=== PATIENT | female | born 1985 | race Caucasian/White ===

== ENCOUNTER 2018-11-05 22:54 | Emergency (ER) | payer OTHER ==
[~2018-11-05] VITALS: Ht 172.7 cm; Wt 109.0 kg
[2018-11-05 23:00] VITALS: BP 132/67; PULSE 92; RESP 18; Ht 172.7 cm; Wt 109.0 kg
[2018-11-06] MEDS ORDERED: CEPH-443 PO (04:00)
[2018-11-06] MEDS ORDERED: ACET500C5 PO (04:00)
--- NOTE | 2018-11-06 06:02 | ERD ---
ER Documentation Chief Complaint Chief Complaint 12 weeks , passed a clot vaginally an hr ago HPI 33-year-old female patient with no significant past medical history presents to ED complaining of vaginal bleeding that started 1 hour ago. Patient reports that she follows up with Dr. Ilan Rey from [facility]. She is a . Reports that she passed a blood clot, had to change one pad since her vaginal bleeding occurred. Reports that her last menstruation was on July 17, 2018. Chills, nausea, vomiting, diarrhea, neck stiffness, dysuria, urgency, frequency. ROS All systems reviewed and are negative except as per history of present illness. Medications Home Meds Active Scripts Acetaminophen* (Tylophen*) 500 Mg Capsule, 1 CAP PO Q6H PRN for PAIN AND OR ELEVATED TEMP, #20 CAP Prov:SHIVA GARCIA PA-C 11/06/18 Cephalexin* (Keflex*) 500 Mg Capsule, 500 MG PO QID for 7 Days, CAP Prov:SHIVA GARCIA PA-C 11/06/18 Allergies Allergies: Coded Allergies: No Known Allergy (Unverified , 11/05/18) PMhx/Soc Medical and Surgical Hx: pt denies Medical Hx History of Surgery: Yes () Anesthesia Reaction: No Hx Neurological Disorder: No Hx Respiratory Disorders: No Hx Cardiac Disorders: No Hx Psychiatric Problems: No Hx Miscellaneous Medical Probl: No Hx Alcohol Use: No Hx Substance Use: No Hx Tobacco Use: No Smoking Status: Never smoker FmHx Family History: No diabetes, No coronary disease Physical Exam Vitals Vital Signs Date Temp Pulse Resp B/P (MAP) Pulse Ox O2 O2 Flow FiO2 Time Delivery Rate 11/05/18 98.1 92 18 132/67 100 23:00 (88) Physical Exam Const: [id number], well-nourished. In no acute distress. Head: Atraumatic, normocephalic Eyes: Normal Conjunctiva without injection. No purulent discharge. ENT: Normal external ear, nose. Moist oropharynx without tonsillar exudates. Non-erythematous pharynx. Uvula midline. No drooling. No trismus. Neck: No cervical midline tenderness. Full range of motion. No meningismus. No cervical lymphadenopathy. No JVD. Resp: Clear to auscultation bilaterally. No wheezing, rhonchi, rales, or crackles. No accessory muscle use. No retractions. Cardio: Regular rate and rhythm. No murmurs, rubs or gallops. Abd: Soft, nontender, non distended. Normal bowel sounds. No palpable masses. No rebound tenderness. No guarding. Negative McBurney's point. Negative psoas sign. Negative obturator sign. Skin: No petechiae or rashes Back: No midline tenderness. No CVA tenderness. Ext: No cyanosis, or edema. Neur: Awake and alert. Normal gait. Normal coordination. Psych: Normal Mood and Affect Result Diagram: 11/06/18 0200 Results 24 hrs Laboratory Tests Test 11/06/18 02:00 11/06/18 03:05 White Blood Count 8.7 10^3/ul Red Blood Count 3.94 10^6/ul Hemoglobin 12.2 g/dl Hematocrit 36.9 % Mean Corpuscular Volume 93.7 fl Mean Corpuscular Hemoglobin 31.0 pg Mean Corpuscular Hemoglobin Concent 33.1 g/dl Red Cell Distribution Width 11.9 % Platelet Count 337 10^3/UL Mean Platelet Volume 9.4 fl Immature Granulocytes % 0.200 % Neutrophils % 71.7 % Lymphocytes % 21.0 % Monocytes % 5.2 % Eosinophils % 1.6 % Basophils % 0.3 % Nucleated Red Blood Cells % 0.0 /100WBC Immature Granulocytes # 0.020 10^3/ul Neutrophils # 6.2 10^3/ul Lymphocytes # 1.8 10^3/ul Monocytes # 0.5 10^3/ul Eosinophils # 0.1 10^3/ul Basophils # 0.0 10^3/ul Nucleated Red Blood Cells # 0.0 10^3/ul Beta HCG, Quantitative 87991.0 mIU/ml Urine Color YELLOW Urine Clarity SLIGHTLY CLOUDY Urine pH 5.0 Urine Specific Ross 1.023 Urine Ketones NEGATIVE mg/dL Urine Nitrite NEGATIVE mg/dL Urine Bilirubin NEGATIVE mg/dL Urine Urobilinogen NEGATIVE mg/dL Urine Leukocyte Esterase NEGATIVE Naresh/ul Urine Microscopic RBC 150 /HPF Urine Microscopic WBC 1 /HPF Urine Squamous Epithelial Cells FEW /HPF Urine Bacteria FEW /HPF Urine Mucus FEW /HPF Urine Hemoglobin 3+ mg/dL Urine Glucose NEGATIVE mg/dL Urine Total Protein NEGATIVE mg/dl Procedures/MDM 33-year-old female patient who is a presents to the ED complaining of vaginal bleeding that started yesterday. Patient is afebrile and nontoxic- appearing. An ultrasound, beta-hCG, CBC, type and RH, UA was ordered to evaluate patient. CBC: No evidence of severe infection or anemia Urine: No elevation in nitrites, leukocyte esterase, hematuria. Bacteria noted Rh: A Positive No indication for Rhogam at this time. beta Hc IMPRESSION: Single live intrauterine with an estimated gestational age of 12 weeks 0 days, and estimated delivery date 05/21/2019. Small subchorionic hemorrhage is noted. This could be reevaluated at time of follow-up anatomy ultrasound prior to 20 weeks. Patient's bleeding symptoms have stabilized while in the department. Patient was treated for a urinary tract infection. Low suspicion for symptomatic anemia, ectopic , sepsis, PID, appendicitis, ovarian torsion, tubo-ovarian abscess, surgical abdomen, or other emergent conditions. Patient was educated that there is a risk for threatened . Patient to follow up with [facility] in 2 days for further evaluation and treatment. Patient is to return sooner to the ED for any worsening symptoms. Patient's questions were answered. Patient understood and agreed with discharge plan. The Diagnosis: Vaginal bleeding and patient less than is 20 weeks Discharge medications: Tylenol, Keflex Follow up with primary care physician in 1-2 days. Instructed patient to return to the ED sooner for any worsening symptoms. Patient's questions were answered. Patient is hemodynamically stable. Patient understood and agreed with discharge plan. Patient discharged stable. Disclaimer: Inadvertent spelling and grammatical errors are likely due to EHR/dictation software use and do not reflect on the overall quality of patient care. Also, please note that the electronic time recorded on this note does not necessarily reflect the actual time of the patient encounter. Departure Diagnosis: Primary Impression: Vaginal bleeding in patient at less than 20 weeks ges... Condition: Stable Patient Instructions: Bleeding During Early Referrals: KYLIE MCFARLAND MD (PCP) SEAN CONNELLY MD [facility] YOU HAVE RECEIVED A MEDICAL SCREENING EXAM AND THE RESULTS INDICATE THAT YOU DO NOT HAVE A CONDITION THAT REQUIRES URGENT TREATMENT IN THE EMERGENCY DEPARTMENT. FURTHER EVALUATION AND TREATMENT OF YOUR CONDITION CAN WAIT UNTIL YOU ARE SEEN IN YOUR DOCTORS OFFICE WITHIN THE NEXT 1-2 DAYS. IT IS YOUR RESPONSIBILITY TO MAKE AN APPOINTMENT FOR FOLOW-UP CARE. IF YOU HAVE A PRIMARY DOCTOR --you should call your primary doctor and schedule an appointment IF YOU DO NOT HAVE A PRIMARY DOCTOR YOU CAN CALL OUR PHYSICIAN REFERRAL HOTLINE AT IF YOU CAN NOT AFFORD TO SEE A PHYSICIAN YOU CAN CHOSE FROM THE FOLLOWING [facility] [address] [facility] [address] [facility] [address] [facility] [address] [facility] [address] [facility] [facility] [address] [facility] YOU HAVE RECEIVED A MEDICAL SCREENING EXAM AND THE RESULTS INDICATE THAT YOU DO NOT HAVE A CONDITION THAT REQUIRES URGENT TREATMENT IN THE EMERGENCY DEPARTMENT. FURTHER EVALUATION AND TREATMENT OF YOUR CONDITION CAN WAIT UNTIL YOU ARE SEEN IN YOUR DOCTORS OFFICE WITHIN THE NEXT 1-2 DAYS. IT IS YOUR RESPONSIBILITY TO MAKE AN APPOINTMENT FOR FOLOW-UP CARE. IF YOU HAVE A PRIMARY DOCTOR --you should call your primary doctor and schedule and appointment IF YOU DO NOT HAVE A PRIMARY DOCTOR YOU CAN CALL OUR PHYSICIAN REFERRAL HOTLINE AT . IF YOU CAN NOT AFFORD TO SEE A PHYSICIAN YOU CAN CHOSE FROM THE FOLLOWING [facility]: [facility] [address] [place] [address] [facility] [address] [place] [address] [facility] [address] [place] [address] [facility] [place] [address] [facility] [address] [place] [address] OFFICE FAX [facility] [address] [place] [address] [address] [address] [place] [address] [address] MUSE, [facility] [address] [facility] [address] [address], [facility] [address] [facility] [facility] [place] [address] [facility] [address] [place] [address] [facility], [facility] [address] - [address] CHAPARRO, MARCIA [address] [facility] [address] [address] ADAMES, [place] [address] [facility]. [address], [facility] [address] [address] PATRICIO, [facility] [address] [place], [place] [id number] [facility] Hours: 8:00 am - 5:00 pm Additional Instructions: Call your primary care doctor TOMORROW for an appointment during the next 2-3 days.See the doctor sooner or return here if your condition worsens before your appointment time. SHIVA GARCIA PA-C Nov 06, 2018 06:02
== END 2018-11-06 04:10 | disposition home or self-care (01) ==
LOC: FTE 22:54
DX: O20.9 Hemorrhage in early pregnancy, unspecified (principal); Z3A.12 12 weeks gestation of pregnancy
CPT/HCPCS: 36415; 76801; 81001; 84702; 85025; 86900; 86901; Z7502

== ENCOUNTER 2019-05-12 07:50 | Inpatient (IN) | payer OTHER ==
[~2019-05-12] VITALS: Ht 172.7 cm; Wt 122.0 kg
[2019-05-12] MEDS: LACTATED RINGER'S 1,000 ML IV SCH ×2 (06:23→10:05)
[~2019-05-12 07:50] MED LIST: ACET500C5 PO; CEPH-443 PO
[2019-05-12 08:13] VITALS: Ht 172.7 cm; Wt 122.0 kg
[2019-05-12] MEDS ORDERED: CEFAZOLIN 3 GM in DEXTROSE 5% 100 ML IV ONE (09:00)
[2019-05-12] MEDS ORDERED: METHYLERGONOVINE 0.2 MG INJ IM PRN ×2 (09:00→17:30)
[2019-05-12] MEDS ORDERED: CARBOPROST 250 MCG INJ IM PRN ×2 (09:00→17:30)
[2019-05-12] MEDS ORDERED: MISOPROSTOL 200 MCG TAB PR PRN ×2 (09:00→17:30)
[2019-05-12] MEDS ORDERED: OXYTOCIN 30 UNITS/LR 500 ML IV PRN ×2 (09:00→17:30)
[2019-05-12] MEDS ORDERED: OXYTOCIN 30 UNITS/LR 500 ML IV SCH ×2 (09:00→17:28)
[2019-05-12] MEDS ORDERED: FENTAnyl 50 MCG/ML VIAL ONE (13:10)
[2019-05-12] MEDS ORDERED: morphine SULFATE/PF (10 MG/10 ML) INJ ONE (13:10)
--- NOTE | 2019-05-12 13:10 | PREAC ---
Date/Time of Note Date/Time of Note DATE: 05/12/19 TIME: 13:09 Anesthesia Eval and Record Evaluation Time Pre-Procedure Interview DATE: 05/12/19 TIME: 13:09 Age 33 Sex female NPO: 8 hrs Preoperative diagnosis previous c section Planned procedure c section with BTL Past Medical History Past Medical History: Includes GI: Obesity, Morbid obesity Surgery & Anesthesia Issues No known issue Meds Anticoagulation: No Beta Bell within 24 hr: No Reason Beta Bell not given: Pt. not on B-Bell Active Scripts Acetaminophen* (Tylophen*) 500 Mg Capsule, 1 CAP PO Q6H PRN for PAIN AND OR ELEVATED TEMP, #20 CAP Prov:SHIVA GARCIA PA-C 11/06/18 Cephalexin* (Keflex*) 500 Mg Capsule, 500 MG PO QID for 7 Days, CAP Prov:SHIVA GARCIA PA-C 11/06/18 Current Medications Lactated Ringer's 1,000 ml @ 125 mls/hr Q8H IV Last administered on 05/12/19at 10:05; Admin Dose 125 MLS/HR; Start 05/12/19 at 08:34 Oxytocin/Lactated Ringer's 500 ml @ 125 mls/hr POST IV ; Start 05/12/19 at 09:00 Oxytocin/Lactated Ringer's 500 ml @ 0 mls/hr ONCE PRN IV .VAGINAL BLEEDING; Start 05/12/19 at 09:00 Methylergonovine Maleate (Methergine) 0.2 mg ONCE PRN IM .VAGINAL BLEEDING; Start 05/12/19 at 09:00 Carboprost Tromethamine (Hemabate) 250 mcg ONCE PRN IM .VAGINAL BLEEDING; Start 05/12/19 at 09:00 Misoprostol (Cytotec) 1,000 mcg ONCE PRN TN .VAGINAL BLEEDING; Start 05/12/19 at 09:00 Meds reviewed: Yes Allergies Coded Allergies: No Known Allergy (Unverified , 11/05/18) Allergies Reviewed: Yes Labs/Studies Labs Reviewed: Reviewed by anesthesiologist Result Diagram: 05/12/19908 Laboratory Tests 05/12/19 09:09 Blood Bank Test 05/12/19 09:10 Antibody Screen NEGATIVE Blood Type A POSITIVE Rh Immune Globulin Candidate NO test: N/A Pre-procedure Exam Airway: Adequate mouth opening, Adequate thyromental dist Mallampati: Mallampati IV Teeth: Normal Lung: Normal Heart: Normal ASA Physical Status ASA physical status: 2 Emergency: None Pre-operative Attestations Prior to commencing anesthesia and surgery, the patient was re-evaluated, there was verification of: *The patient's identity *The results of appropriate recent lab work and preoperative vital signs *The above evaluation not changing prior to induction *Anesthetic plan, risk benefits, alternative and complications discussed with patient/family; questions answered; patient/family understands, accepts and wishes to proceed. NABIL MUNIZ DO May 12, 2019 13:10
--- NOTE | 2019-05-12 13:16 | HP ---
Date/Time of Note Date/Time of Note DATE: 05/12/19 TIME: 13:16 OB - History Hx of Present : 5 Para: 4 Care: Good Care Ultrasounds: Normal mid trimester US Obstetrical Complications: None Medical Complications: None Past Family/Social History * Past Medical, Surgical, Family and Obstetric Histories reviewed from chart. OB Admission Exam Physical Exam HEENT: WNL Heart: Rhythm Normal Lungs: Clear, Equal Abdomen: WNL Extremities: Normal Reflexes: Normal Cervical Dilatation: None Effacement: 0% Station: Ballotable Membranes: Intact Heart Rate: 120's Accelerations: Accelerations Present Contractions on Admission: None Last 72 hours Lab Results CBC & BMP 05/12/19 09:09 OB Assessment/Plan Reason for admission: section Plan: Section SEAN CONNELLY MD May 12, 2019 13:16
[2019-05-12] MEDS ORDERED: ONDANSETRON 4 MG INJ ONE (13:23)
[2019-05-12] MEDS ORDERED: DEXAMETHASONE 4 MG/ML 1 ML INJ ONE (13:23)
[2019-05-12] MEDS ORDERED: FAMOTIDINE 20 MG INJ ONE (13:24)
[2019-05-12] MEDS ORDERED: MIDAZOLAM 1 MG/ML 2 ML INJ ONE (13:36)
[2019-05-12] MEDS ORDERED: DIPHENHYDRAMINE 50 MG INJ ONE (13:54)
--- NOTE | 2019-05-12 13:55 | PAC ---
Date/Time of Note Date/Time of Note DATE: 05/12/19 TIME: 13:55 Post-Anesthesia Notes Post-Anesthesia Note Last documented vital signs 105/65 75 18 99 Activity: WNL Respiratory function: WNL Cardiovascular function: WNL Mental status: Baseline Pain reasonably controlled: Yes Hydration appropriate: Yes Nausea/Vomiting absent: Yes NABIL MUNIZ DO May 12, 2019 13:55
--- NOTE | 2019-05-12 14:01 | OPR ---
Operative Report Planned Procedure Procedure date May 12, 2019 Procedure(s) RPEAT C/S AND BTL Performed by see signature line Calibration Laboratory Technician: TAMIR GARCIA MD Pre-procedure diagnosis TERM PREG MULTIPARITY [id number] Anesthesia Type: Vegsm5m spinal Post-Procedure Post-procedure diagnosis SAME Findings Live Baby [], Apgars [] and [], weight [], position [], [] presentation []cord. Estimated Blood Loss: 600 - 700 mls Specimen(s) none Grafts/Implant(s) none Complication(s) none Procedure Description Under satisfactory []SPINAL anesthesia, the patient was prepped and draped and placed in a supine position, tilted to the left. Pfannenstiel incision was made, carried through the subcutaneous tissue. Bleeders brought under control with electrocautery. Fascia incised to the length of the incision. Rectus muscles from the fascia, divided midline. Peritoneum exposed, entered through a transverse incision. Exploration of abdomen revealed gravid uterus. Bladder flap was developed. Transverse incision was made in the lower segment of the uterus. Amniotic sac ruptured. [CLEAR ] amniotic fluid noted. [] Nasal oropharyngeal suction was performed. The baby was handed to the team for immediate attention. The placenta was delivered manually intact. Uterine cavity was cleaned with wet sponge and drainage established. Uterus closed in 2 layers using [ONE MONOCRYL] in continuous fashion. Peritoneal cavity irrigated with warm saline. THE RIGHT TUBE WAS LIGATED TWICE AT THE FIBRIMA AND CUT. THE LEFT TUBE WAS LIGATED TWICE WITH O PLAIN AND CUT Sponge, needle and instrument count reported to be correct. Abdominal peritoneum closed with []ONE MONOCRYL continuously. Rectus muscle approximated with []. Fascia closed with [ONE MONOCRYL], and skin closed with esthela. Estimated blood loss [700]mL. SEAN CONNELLY MD May 12, 2019 14:01
[2019-05-12 16:30] VITALS: BP 94/53; PULSE 64; RESP 16
[2019-05-12] MEDS ORDERED: LACTATED RINGER'S 1,000 ML IV SCH (17:28)
[2019-05-12] MEDS ORDERED: NACL 0.9% 3 ML SYG IV SCH (17:30)
[2019-05-12] MEDS ORDERED: NA PHOSPHATE/BIPHOS 133 ML ENEMA PR PRN (17:30)
[2019-05-12] MEDS ORDERED: HYDROmorphONE 0.5 MG/0.5 ML SYG IV PRN ×2 (18:00)
[2019-05-12] MEDS ORDERED: DIPHENHYDRAMINE 50 MG INJ IV PRN (18:00)
[2019-05-12] MEDS ORDERED: NALOXONE (0.4 MG/ML) INJ IV PRN (18:00)
[2019-05-12] MEDS ORDERED: KETOROLAC 30 MG INJ IV PRN (18:00)
[2019-05-12] MEDS ORDERED: ONDANSETRON 4 MG INJ IV PRN (18:00)
[2019-05-12] MEDS ORDERED: ZOLPIDEM 5 MG TAB PO PRN (18:00)
[2019-05-12 19:30] VITALS: BP 114/60; PULSE 56; RESP 18
[2019-05-12] MEDS: IBUPROFEN 800 MG TAB PO SCH (22:05)
[2019-05-12] MEDS: LANOLIN HPA 1 PKT TOP PRN (22:05)
[2019-05-12 23:38] VITALS: BP 106/59; PULSE 55; RESP 17
[2019-05-13 04:46] VITALS: BP 105/55; PULSE 59; RESP 18
[2019-05-13] MEDS: IBUPROFEN 800 MG TAB PO SCH ×3 (06:24→22:00)
[2019-05-13 08:58] VITALS: BP 103/55; PULSE 63; RESP 18
[2019-05-13] MEDS ORDERED: MEASLES,MUMPS,RUBELLA VACCINE INJ SC* ONE (09:00)
[2019-05-13] MEDS: SENNA/DOCUSATE NA (8.6MG/50MG) TAB PO SCH ×2 (09:29→20:43)
[2019-05-13] MEDS: HYDROCODONE/APAP (5/325) TAB PO PRN ×2 (15:19→20:48)
[2019-05-13 15:40] VITALS: BP 107/61; PULSE 72; RESP 18
[2019-05-13 20:00] VITALS: BP 106/69; PULSE 68; RESP 18
[2019-05-14] MEDS: HYDROCODONE/APAP (5/325) TAB PO PRN ×3 (04:17→21:05)
[2019-05-14 04:57] VITALS: BP 103/72; PULSE 71; RESP 18
[2019-05-14] MEDS: IBUPROFEN 800 MG TAB PO SCH ×3 (06:15→22:00)
[2019-05-14 08:00] VITALS: BP_SYST 117; BP_DIAS 54; BP_DIAS 64; PULSE 64; PULSE 69; RESP 18; RESP 20
--- NOTE | 2019-05-14 08:14 | DS ---
Date/Time of Note Date/Time of Note DATE: 05/14/19 TIME: 08:14 Discharge Summary Admission/Discharge Info Admit Date/Time May 12, 2019 at 07:50 Discharge Date/Time Discharge Diagnosis TERM PREG Patient Condition: Stable Hospital Course UNREMARKABLE Home Meds Active Scripts Acetaminophen* (Tylophen*) 500 Mg Capsule, 1 CAP PO Q6H PRN for PAIN AND OR ELEVATED TEMP, #20 CAP Prov:SHIVA GARCIA PA-C 11/06/18 Cephalexin* (Keflex*) 500 Mg Capsule, 500 MG PO QID for 7 Days, CAP Prov:SHIVA GARCIA PA-C 11/06/18 Primary Care Provider MD MARICEL Tate PAYMAN P MD May 14, 2019 08:14
--- NOTE | 2019-05-14 08:14 | QN ---
Documentation Comment DOING WELL VSS ABD SOFT D/C HOME NEXT AM SEAN CONNELLY MD May 14, 2019 08:14
[2019-05-14] MEDS: SENNA/DOCUSATE NA (8.6MG/50MG) TAB PO SCH ×2 (08:35→21:00)
[2019-05-14 16:00] VITALS: BP 98/74; PULSE 57; RESP 18
[2019-05-14 19:53] VITALS: BP 102/71; PULSE 68; RESP 19
[2019-05-14] MEDS: LANOLIN HPA 1 PKT TOP PRN (20:59)
[2019-05-15 04:27] VITALS: BP 98/69; PULSE 72; RESP 18
[2019-05-15] MEDS: IBUPROFEN 800 MG TAB PO SCH (05:31)
[2019-05-15 08:00] VITALS: BP 121/59; PULSE 65; RESP 16
[2019-05-15] MEDS: SENNA/DOCUSATE NA (8.6MG/50MG) TAB PO SCH (08:23)
[2019-05-15] MEDS: HYDROCODONE/APAP (5/325) TAB PO PRN (08:24)
[2019-05-15] MEDS ORDERED: DIPHTH/TET/ACEL PERTUSS (ADULT) 0.5 ML VIAL IM* ONE (09:00)
[2019-05-15] MEDS ORDERED: MEASLES,MUMPS,RUBELLA VACCINE INJ SC* ONE (09:00)
--- NOTE | 2019-05-16 09:45 | DELSUM ---
Delivery Summary A-C Datetime Report Generated by CPN: 05/16/2019 09:45 DELIVERY PERSONNEL Auto Tester: [place], [place] MATERNAL INFORMATION Delivery Anesthesia: Spinal Medications in Delivery: see anesthesia records Delivery QBL (ml): 500 Placenta Cultured: No Maternal Complications: None LABOR SUMMARY EDC: 05/19/2019 00:00 No. Babies in Womb: 1 Attempted: No Labor Anesthesia: None LABOR INFORMATION Reason for Induction: Not Applicable Group B Beta Strep: Positive Antibiotics # of Doses: 1 Antibiotics Time of Last Dose: 05/12/2019 13:15 Steroids Given: None Reason Steroids Not Administered: Not Applicable MEMBRANES Membranes Rupture Method: Artificial Rupture of Membranes: 05/12/2019 13:33 Length of Rupture (hr): 0.00 Amniotic Fluid Color: Clear Amniotic Fluid Amount: Moderate Amniotic Fluid Odor: Normal STAGES OF LABOR Stage 3 hr: 0 Stage 3 min: 1 CSECTION DELIVERY Primary Indication: Repeat Elective CSection Urgency: Elective CSection Incidence: Repeat Labor: No Labor Elective: Elective CSection Incision: Lower Uterine Transverse Sterilization Procedure: [place] BABY A INFORMATION Delivery Date/Time: 05/12/2019 13:33 Method of Delivery: Born in Route : No : N/A Forceps: N/A Vacuum Extraction: N/A Shoulder Dystocia : No SHOULDER DYSTOCIA BABY A Infant Delivery Date/Time: 05/12/2019 13:33 PRESENTATION/POSITION BABY A Presentation: Cephalic Cephalic Presentation: Vertex Vertex Position: Left Occipital Anterior Breech Presentation: N/A PLACENTA INFORMATION BABY A Placenta Delivery Time : 05/12/2019 13:34 Placenta Method of Delivery: Manual Removal Placenta Status: Delivered SCORES BABY A Heart Rate 1 min: >100 bpm Resp Effort 1 min: Good Cry Reflex Irritability 1 min: Cough/Sneeze/Pulls Away Muscle Tone 1 min: Active Motion Color 1 min: Blue/Pale Resuscitation Effort 1 min: Tactile Stimulation SCORE 1 MIN: 8 Heart Rate 5 min: >100 bpm Resp Effort 5 min: Good Cry Reflex Irritability 5 min: Cough/Sneeze/Pulls Away Muscle Tone 5 min: Active Motion Color 5 min: Body [place], Extremit Blue SCORE 5 MIN: 9 INFORMATION BABY A Gestational Age at Delivery: 39.0 Gestational Status: Full Term- 39- 40.6 Weeks Infant Outcome : Liveborn, with signs of life Infant Condition : Stable Sex: Male IDENTIFICATION/MEDS BABY A ID Band Number: [id number] ID Band Location: Right Leg; Left Arm Sensor Applied: Yes Sensor Number: [id number] Sensor Location : Cord Clamp WEIGHT/LENGTH BABY A Birthweight (gm): 3535 Infant Weight (lb): 7 Infant Weight (oz): 13 Infant Length (in): 21.00 Length (cm): 53.34 CORD INFORMATION BABY A No. Cord Vessels: 3 Nuchal Cord : N/A Cord Blood Taken: Yes Suction: Mouth; Nose ASSESSMENT BABY A Complications: None Physical Findings at Delivery: Within Normal Limits Respirations: Appears Normal Production Assembly Operator/ALS Called : No Care By: /JULES Transferred To: Remains with Mother
== END 2019-05-15 09:40 | disposition home or self-care (01) | DRG 785 ==
LOC: L-D 07:50 → PP1 16:25
PROVIDERS: ADMIT Obstetrics & Gynecology; ATTEND Obstetrics & Gynecology
PROC: 0UB70ZZ Excision of Bilateral Fallopian Tubes, Open Approach (ICD-10-PCS; 2019-05-12)
PROC: 10D00Z1 Extraction of Products of Conception, Low, Open Approach (ICD-10-PCS; principal; 2019-05-12 15:30)
DX: O34.211 Maternal care for low transverse scar from previous cesarean delivery (principal); O99.214 Obesity complicating childbirth; E66.01 Morbid (severe) obesity due to excess calories; Z30.2 Encounter for sterilization; Z37.0 Single live birth; Z3A.39 39 weeks gestation of pregnancy
CPT/HCPCS: 85025; 85610; 85730; 86592; 86850; 86900; 86901; 87340; 88302; 90715; 99464; J0690; J1100; J1200; J2250; J2274; J2405; J2590; J3010; J7120